=== PATIENT | female | born 1955 | race Caucasian/White ===

== ENCOUNTER → 2016-11-06 | Outpatient (CLI) | payer OTHER ==
--- NOTE | 2016-11-06 15:59 | REP ---
MAXILLOFACIAL CT WITHOUT CONTRAST: HISTORY: Sinus pain. Small bilateral Samm's cells are present. Minimal mucosal thickening is present in the maxillary sinuses. The remaining sinuses are clear. The osteomeatal units are patent. The middle and inferior nasal turbinates are partially paradoxical. There is francis bullosa of the left middle nasal turbinate. There is minimal deviation of the nasal septum to the right. The nasal septum abuts the middle nasal turbinates. The cribriform plate , medial ortiz of the orbits and optic canals are intact. The carotid canals form a segment of the posterolateral ortiz of the sphenoid sinus. IMPRESSION: Sinus mucosal thickening as described above. Signed by Patrick Rojas MD 11/06/2016 04:55 P
== END ==
LOC: M RAD 15:06
PROVIDERS: ATTEND Nurse Practitioner Family
DX: R51 Headache (principal)

== ENCOUNTER → 2017-01-25 | Outpatient (CLI) | payer OTHER ==
--- NOTE | 2017-01-25 13:10 | REP ---
RIGHT UPPER QUADRANT ULTRASOUND: Real-time sonographic evaluation of the right upper quadrant performed. Patient is status post cholecystectomy. There is not significant biliary diltation. Common bile duct measures 7 mm. There is diffuse fibrofatty infiltration of the liver. No gross liver mass is seen. Pancreas could not be visualized due to overlying bowel gas. Right kidney demonstrates no hydronephrosis or nephrolithiasis with normal size at 10.7 cm in length. No free fluid is seen. IMPRESSION: Status post cholecystectomy. Diffuse fibrofatty infiltration of the liver without other definite abnormality. Signed by Nathan Menendez MD 01/25/2017 03:28 P
== END ==
LOC: M RAD 09:10
PROVIDERS: ATTEND Nurse Practitioner Family
DX: K76.0 Fatty (change of) liver, not elsewhere classified (principal)

== ENCOUNTER → 2017-03-06 | Outpatient (CLI) | payer OTHER ==
[2017-03-06 13:12] LABS: BLOOD UREA NITROGEN 8 MG/DL (7-18); CREATININE FOR GFR 0.74 MG/DL (0.55-1.02); GLOMERULAR FILTRATION RATE > 60.0 (>51)
== END ==
LOC: M LAB 12:18
PROVIDERS: ATTEND Internal Medicine Gastroenterology
DX: K90.0 Celiac disease (principal)

== ENCOUNTER → 2017-03-08 | Outpatient (CLI) | payer OTHER ==
[~2017-03-08] MED LIST: GASTROGRAFIN SOLUTION 30ML (Q9963) As Ordered ONE; ISOVUE-370 76% 100ML VIAL (Q9967) As Ordered ONE
--- NOTE | 2017-03-08 12:52 | REP ---
Clinical: Abdominal pain with elevated liver function tests. Technique: Axial contrast enhanced images from the lung bases to the pubic symphysis using oral and 100 ml Isovue 370 intravenous contrast material with precontrast and delayed images of the abdomen as well as coronal and sagittal re-formations. Findings: Lung bases are clear. Visualized heart and pericardium normal. Diffuse fatty infiltration and mild enlargement of the liver is appreciated without focal hepatic lesion. Spleen, pancreas, bilateral adrenal glands and kidneys are normal. The enteric system including stomach, small and large bowel is unremarkable and without obstruction or acute inflammatory process. Sigmoid diverticulosis noted without acute diverticulitis. The patient appears to be status post cholecystectomy and appendectomy. Pelvis demonstrates normal bladder and uterus. 4 cm adnexal cyst was identified on pelvic ultrasound dated 2012. No ascites. No free air. No obvious adenopathy. Atherosclerotic changes to the aorta noted without aneurysm. Musculoskeletal structures demonstrate age-related changes. Impression: 1. Hepatomegaly and mild fatty infiltration to the liver without focal hepatic lesion. 2. 4 cm adnexal cyst identified on prior ultrasound dated 2012. 3. Colonic diverticula without acute diverticulitis. 4. No further acute intra-abdominal or pelvic pathology appreciated. Signed by Juan Miguel Welch MD 03/08/2017 12:43 P
== END ==
LOC: M RAD 09:29
PROVIDERS: ATTEND Internal Medicine Gastroenterology
DX: R94.5 Abnormal results of liver function studies (principal)

== ENCOUNTER → 2017-03-26 | Outpatient (CLI) | payer OTHER ==
[2017-03-26 18:35] LABS: ALBUMIN 3.8 GM/DL (3.2-5.2); ALBUMIN/GLOBULIN RATIO 1.27 (1.00-1.93); ALKALINE PHOSPHATASE 134 U/L (45-117); ALT/SGPT 138 U/L (12-78); AST/SGOT 103 U/L (15-37); BILIRUBIN,DIRECT 0.2 MG/DL (0.0-0.2); BILIRUBIN,TOTAL 0.5 MG/DL (0.2-1.0); FERRITIN 360 NG/ML (8-252); PERCENT SATURATION 15.4 % (13.2-37.4); TOTAL IRON BINDING CAPACITY 358 UG/DL (250-450); TOTAL PROTEIN 6.8 GM/DL (6.4-8.2)
[2017-03-27 09:39] LABS: HEPATITIS B SURFACE ANTIBODY NEGATIVE (POSITIVE)
[2017-03-27 11:40] LABS: ALBUMIN 4.17 GM/DL (3.29-5.55); ALBUMIN % 61.3 % (55.8-66.1); GAMMA GLOBULIN % 9.1 % (11.1-18.8)
[2017-03-29 00:08] LABS: ALPHA 1 ANTITRYPSIN 175 mg/dL (90-200); TISSUE TRANSGLUTAMINASE IgG 2 U/mL (0-5)
== END ==
LOC: M LAB 15:53
PROVIDERS: ATTEND Nurse Practitioner Family
DX: R94.5 Abnormal results of liver function studies (principal)

== ENCOUNTER → 2018-01-10 | Outpatient (REF) | payer OTHER ==
[2018-01-10 15:09] LABS: VITAMIN B12 LEVEL 701 PG/ML (247-911)
[2018-01-10 15:24] LABS: ERYTHROCYTE SEDIMENTATION RATE 26 mm/hr (0-30)
== END ==
LOC: M LAB REF 13:33
DX: M05.40 Rheumatoid myopathy with rheumatoid arthritis of unspecified site (principal)

== ENCOUNTER → 2019-06-08 | Outpatient (REF) | payer OTHER | LOC: M LAB REF 12:15 | PROVIDERS: ATTEND Internal Medicine | DX: M06.9 Rheumatoid arthritis, unspecified (principal) ==

== ENCOUNTER → 2021-03-18 | Outpatient (CLI) | payer MEDICARE, OTHER ==
--- NOTE | 2021-03-18 14:27 | REP ---
INDICATION: SOB COMPARISON: 01/09/2016 TECHNIQUE: PA and lateral. FINDINGS: The mediastinum and cardiac silhouette are normal. The lung wilkerson are clear and without acute consolidation, effusion, or pneumothorax. The skeletal structures are intact and normal. IMPRESSION: No acute cardiopulmonary process. <Electronically signed by Juan Miguel Welch > 03/18/21 0179
== END ==
LOC: M RAD 13:52
PROVIDERS: ATTEND Internal Medicine
DX: R06.02 Shortness of breath (principal)

== ENCOUNTER → 2021-09-05 | Outpatient (REF) | payer MEDICARE, OTHER | LOC: M LAB REF 18:51 | PROVIDERS: ATTEND Physician Assistant | DX: D04.5 Carcinoma in situ of skin of trunk (principal) | CPT/HCPCS: 11102; 17000; 17111; 88305; G0463 ==

== ENCOUNTER → 2021-11-07 | Outpatient (REF) | payer MEDICARE, OTHER | LOC: M LAB REF 16:57 | PROVIDERS: ATTEND Physician Assistant | DX: L90.5 Scar conditions and fibrosis of skin (principal); L57.8 Other skin changes due to chronic exposure to nonionizing radiation ==

== ENCOUNTER → 2021-11-21 | Outpatient (REF) | payer MEDICARE, OTHER ==
[2021-11-21 17:26] LABS: PERCENT SATURATION 14.8 % (13.2-45.0)
== END ==
LOC: M LAB REF 16:22
PROVIDERS: ATTEND Internal Medicine
DX: D64.9 Anemia, unspecified (principal); M05.40 Rheumatoid myopathy with rheumatoid arthritis of unspecified site

== ENCOUNTER → 2022-04-03 | Outpatient (CLI) | payer MEDICARE, OTHER ==
[~2022-04-03] MED LIST changes: -GASTROGRAFIN SOLUTION 30ML (Q9963) As Ordered ONE; -ISOVUE-370 76% 100ML VIAL (Q9967) As Ordered ONE; +ISOVUE-370 76% 100ML VIAL As Ordered ONE
== END ==
LOC: M RAD 09:06
PROVIDERS: ATTEND Internal Medicine
DX: R91.8 Other nonspecific abnormal finding of lung field (principal); R06.02 Shortness of breath
CPT/HCPCS: 71260; Q9967

== ENCOUNTER → 2022-04-24 | Outpatient (CLI) | payer MEDICARE, OTHER | LOC: M WUC 14:30 | PROVIDERS: ATTEND Physician Assistant Medical | DX: M54.2 Cervicalgia (principal); M25.512 Pain in left shoulder ==

== ENCOUNTER → 2022-04-26 | Outpatient (CLI) | payer MEDICARE, OTHER | LOC: M PLARAD 10:14 | PROVIDERS: ATTEND Internal Medicine | DX: R91.8 Other nonspecific abnormal finding of lung field (principal) | CPT/HCPCS: 78815; A9552 ==

== ENCOUNTER → 2022-09-05 | Outpatient (CLI) | payer MEDICARE, OTHER ==
[2022-09-05 15:27] LABS: BASO # 0.1 10^3/uL (0.0-0.2); BASO % 0.6 % (0.0-1.0); EOS # 0.2 10^3/uL (0.0-0.5); EOS % 1.6 % (0.0-3.0); HEMATOCRIT 38.3 % (36.0-47.0); HEMOGLOBIN 11.8 g/dl (12.0-15.5); LYMPH # 2.1 10^3/uL (1.5-5.0); LYMPH % 22.2 % (24.0-44.0); MEAN CORPUSCULAR HEMOGLOBIN 27.7 pg (27.0-33.0); MEAN CORPUSCULAR HGB CONC 30.8 g/dl (32.0-36.5); MEAN CORPUSCULAR VOLUME 89.9 fl (80.0-96.0); MONO # 0.9 10^3/uL (0.0-0.8); MONO % 9.3 % (2.0-8.0); NEUTROPHILS # 6.2 10^3/uL (1.5-8.5); NEUTROPHILS % 65.5 % (36.0-66.0); PLATELET COUNT, AUTOMATED 162 10^3/uL (150-450); RED BLOOD COUNT 4.26 10^6/uL (4.00-5.40); WHITE BLOOD COUNT 9.4 10^3/uL (4.0-10.0)
[2022-09-05 18:04] LABS: BLOOD UREA NITROGEN 16 MG/DL (9-23); CALCIUM LEVEL 9.4 MG/DL (8.3-10.6); CARBON DIOXIDE LEVEL 26 MMOL/L (20-31); CHLORIDE LEVEL 102 MMOL/L (98-107); CREATININE FOR GFR 0.58 MG/DL (0.55-1.30); GLOMERULAR FILTRATION RATE > 60.0 (>45); GLUCOSE, FASTING 161 MG/DL (74-106); POTASSIUM SERUM 4.6 MMOL/L (3.5-5.1); SODIUM LEVEL 138 MMOL/L (136-145)
== END ==
LOC: M PLALAB 13:59
PROVIDERS: ATTEND Internal Medicine Cardiovascular Disease
DX: E11.69 Type 2 diabetes mellitus with other specified complication (principal); I10 Essential (primary) hypertension

== ENCOUNTER → 2022-10-01 | Outpatient (REF) | payer MEDICARE, OTHER ==
[2022-10-02 13:27] LABS: FERRITIN 30.8 NG/ML (7.3-270.7)
[2022-10-02 14:03] LABS: PERCENT SATURATION 15.2 % (13.2-45.0)
== END ==
LOC: M LAB REF 11:41
PROVIDERS: ATTEND Internal Medicine
DX: D64.9 Anemia, unspecified (principal); R53.83 Other fatigue

== ENCOUNTER → 2022-10-12 | Outpatient (CLI) | payer MEDICARE, OTHER ==
[2022-10-12 15:50] LABS: HEMATOCRIT 34.9 % (36.0-47.0); HEMOGLOBIN 10.8 g/dl (12.0-15.5); MEAN CORPUSCULAR HEMOGLOBIN 27.8 pg (27.0-33.0); MEAN CORPUSCULAR HGB CONC 30.9 g/dl (32.0-36.5); MEAN CORPUSCULAR VOLUME 89.9 fl (80.0-96.0); PLATELET COUNT, AUTOMATED 207 10^3/uL (150-450); RED BLOOD COUNT 3.88 10^6/uL (4.00-5.40); WHITE BLOOD COUNT 5.6 10^3/uL (4.0-10.0)
[2022-10-12 16:21] LABS: ALBUMIN 3.6 G/DL (3.2-5.2); ALKALINE PHOSPHATASE 144 U/L (46-116); ALT/SGPT 38 U/L (7.0-40); AST/SGOT 61 U/L (<34); BILIRUBIN,TOTAL 0.7 MG/DL (0.3-1.2); BLOOD UREA NITROGEN 9 MG/DL (9-23); CALCIUM LEVEL 9.7 MG/DL (8.3-10.6); CARBON DIOXIDE LEVEL 21 MMOL/L (20-31); CHLORIDE LEVEL 105 MMOL/L (98-107); CREATININE FOR GFR 0.59 MG/DL (0.55-1.30); GLOMERULAR FILTRATION RATE > 60.0 (>45); GLUCOSE, FASTING 160 MG/DL (74-106); POTASSIUM SERUM 4.6 MMOL/L (3.5-5.1); SODIUM LEVEL 139 MMOL/L (136-145); TOTAL PROTEIN 6.2 G/DL (5.7-8.2)
== END ==
LOC: M PLALAB 13:19
PROVIDERS: ATTEND Physician Assistant
DX: I25.10 Atherosclerotic heart disease of native coronary artery without angina pectoris (principal); G47.30 Sleep apnea, unspecified

== ENCOUNTER → 2022-11-09 | Outpatient (CLI) | payer MEDICARE, OTHER ==
[2022-11-09 14:29] LABS: CHOLESTEROL RISK RATIO 3.36 (<5); HDL CHOLESTEROL 31.5 MG/DL (>40); LDL CHOLESTEROL 51.1 MG/DL (<100)
[2022-11-09 14:30] LABS: FERRITIN 23.7 NG/ML (7.3-270.7)
[2022-11-09 14:37] LABS: HEMATOCRIT 34.9 % (36.0-47.0); HEMOGLOBIN 10.6 g/dl (12.0-15.5); MEAN CORPUSCULAR HEMOGLOBIN 27.9 pg (27.0-33.0); MEAN CORPUSCULAR HGB CONC 30.4 g/dl (32.0-36.5); MEAN CORPUSCULAR VOLUME 91.8 fl (80.0-96.0); PLATELET COUNT, AUTOMATED 178 10^3/uL (150-450); WHITE BLOOD COUNT 4.8 10^3/uL (4.0-10.0)
== END ==
LOC: M PLALAB 10:36
PROVIDERS: ATTEND Physician Assistant
DX: D64.9 Anemia, unspecified (principal); E78.5 Hyperlipidemia, unspecified

== ENCOUNTER → 2022-11-09 | Outpatient (CLI) | payer MEDICARE, OTHER | LOC: M RAD 09:32 | PROVIDERS: ATTEND Internal Medicine Pulmonary Disease | DX: R91.1 Solitary pulmonary nodule (principal); E78.5 Hyperlipidemia, unspecified; D64.9 Anemia, unspecified ==

== ENCOUNTER → 2022-11-16 | Outpatient (REF) | payer MEDICARE, OTHER ==
[2022-11-16 16:50] LABS: INR 1.04; PROTHROMBIN TIME 13.8 SECONDS (12.5-14.5)
== END ==
LOC: M LAB REF 16:04
PROVIDERS: ATTEND Internal Medicine
DX: D64.9 Anemia, unspecified (principal); K76.0 Fatty (change of) liver, not elsewhere classified

== ENCOUNTER → 2023-02-07 | Outpatient (REF) | payer MEDICARE, OTHER ==
[2023-02-07 17:30] LABS: PERCENT SATURATION 8.8 % (13.2-45.0)
== END ==
LOC: M LAB REF 16:17
PROVIDERS: ATTEND Internal Medicine
DX: D50.9 Iron deficiency anemia, unspecified (principal)

== ENCOUNTER 2023-11-15 17:22 | Emergency (ER) | payer MEDICARE, OTHER ==
[~2023-11-15] VITALS: Ht 177.8 cm; Wt 130.9 kg
[2023-11-15] MEDS ORDERED: ESCITALOPRAM (18:31)
[2023-11-15] MEDS ORDERED: CLOP75TA2 (18:31)
[2023-11-15] MEDS ORDERED: TIRO50CA3 (18:31)
[2023-11-15] MEDS ORDERED: PRAM0.5T4 (18:31)
[2023-11-15] MEDS ORDERED: VALS1TAB68 (18:31)
[2023-11-15] MEDS ORDERED: METF500T13 (18:31)
[2023-11-15] MEDS ORDERED: ONDA4TAB6 (18:31)
[2023-11-15] MEDS ORDERED: CYCL-707 (18:31)
[2023-11-15] MEDS ORDERED: ALLO100T (18:31)
[2023-11-15] MEDS ORDERED: BUPR75TA5 (18:31)
[2023-11-15] MEDS ORDERED: NS 1,000 ML IV ONE (19:20)
[2023-11-15 20:15] LABS: BASO # 0.1 10^3/uL (0.0-0.2); BASO % 0.8 % (0.0-1.0); EOS # 0.1 10^3/uL (0.0-0.5); EOS % 1.8 % (0.0-3.0); HEMOGLOBIN 10.5 g/dl (12.0-15.5); LYMPH # 1.6 10^3/uL (1.5-5.0); LYMPH % 26.2 % (24.0-44.0); MEAN CORPUSCULAR HGB CONC 31.8 g/dl (32.0-36.5); MEAN CORPUSCULAR VOLUME 84.8 fl (80.0-96.0); MONO # 0.5 10^3/uL (0.0-0.8); MONO % 8.5 % (2.0-8.0); NEUTROPHILS # 3.8 10^3/uL (1.5-8.5); NEUTROPHILS % 62.4 % (36.0-66.0); PLATELET COUNT, AUTOMATED 232 10^3/uL (150-450); RED BLOOD COUNT 3.89 10^6/uL (4.00-5.40); WHITE BLOOD COUNT 6.1 10^3/uL (4.0-10.0)
[2023-11-15 20:39] LABS: CK-MB VALUE MASS < 1.0 NG/ML (<3.6)
[2023-11-15 20:41] LABS: BLOOD UREA NITROGEN 8 MG/DL (9-23); CALCIUM LEVEL 9.6 MG/DL (8.3-10.6); CARBON DIOXIDE LEVEL 25 MMOL/L (20-31); CHLORIDE LEVEL 108 MMOL/L (98-107); CPK CREATINE PHOSPHOKINASE 72 U/L (34-145); CREATININE FOR GFR 0.75 MG/DL (0.55-1.30); GLOMERULAR FILTRATION RATE > 60.0 (>45); GLUCOSE, FASTING 141 MG/DL (74-106); MB/CK RELATIVE INDEX 1.38 (< OR =4); POTASSIUM SERUM 4.1 MMOL/L (3.5-5.1); SODIUM LEVEL 140 MMOL/L (136-145)
[2023-11-15 20:43] LABS: THYROID STIMULATING HORMONE 2.093 uIU/ML (0.55-4.78)
[2023-11-15 21:50] LABS: CK-MB VALUE MASS < 1.0 NG/ML (<3.6); CPK CREATINE PHOSPHOKINASE 75 U/L (34-145); MB/CK RELATIVE INDEX 1.33 (< OR =4)
[2023-11-16 00:45] VITALS: BP 144/67; TEMP 98.1; O2SAT 95
== END 2023-11-16 01:06 | disposition home or self-care (01) ==
LOC: M ED 17:22
DX: I95.1 Orthostatic hypotension (principal); J45.909 Unspecified asthma, uncomplicated; K58.9 Irritable bowel syndrome, unspecified; G47.33 Obstructive sleep apnea (adult) (pediatric); Z88.5 Allergy status to narcotic agent; Z79.83 Long term (current) use of bisphosphonates; Z79.899 Other long term (current) drug therapy

== ENCOUNTER → 2023-11-22 | Outpatient (CLI) | payer MEDICARE, OTHER ==
[~2023-11-22] MED LIST changes: +ALLO100T; +BUPR75TA5; +CLOP75TA2; +CYCL-707; +ESCITALOPRAM; -ISOVUE-370 76% 100ML VIAL As Ordered ONE; +METF500T13; +ONDA4TAB6; +PRAM0.5T4; +TIRO50CA3; +VALS1TAB68
== END ==
LOC: M PLAIMG 08:06
PROVIDERS: ATTEND Internal Medicine Pulmonary Disease
DX: R91.8 Other nonspecific abnormal finding of lung field (principal)

== ENCOUNTER → 2023-11-29 | Outpatient (REF) | payer MEDICARE, OTHER ==
[2023-11-29 12:58] LABS: PERCENT SATURATION 9.1 % (13.2-45.0)
[2023-11-29 13:05] LABS: FERRITIN 13.4 NG/ML (7.3-270.7)
== END ==
LOC: M LAB REF 12:09
PROVIDERS: ATTEND Internal Medicine
DX: D50.9 Iron deficiency anemia, unspecified (principal)

== ENCOUNTER → 2024-04-06 | Outpatient (CLI) | payer MEDICARE, OTHER ==
[~2024-04-06] MED LIST changes: +ONDA-282; -ONDA4TAB6
== END ==
LOC: M RAD 07:46
PROVIDERS: ATTEND Internal Medicine
DX: R16.0 Hepatomegaly, not elsewhere classified (principal); Z90.49 Acquired absence of other specified parts of digestive tract

== ENCOUNTER → 2024-11-12 | Outpatient (REF) | payer MEDICARE, OTHER ==
[2024-11-12 18:45] LABS: PERCENT SATURATION 5.4 % (13.2-45.0)
== END ==
LOC: M LAB REF 16:22
PROVIDERS: ATTEND Internal Medicine
DX: D50.9 Iron deficiency anemia, unspecified (principal)

== ENCOUNTER → 2025-02-11 | Outpatient (REF) | payer MEDICARE, OTHER ==
[2025-02-11 19:17] LABS: PERCENT SATURATION 16.9 % (13.2-45.0)
[2025-02-11 19:19] LABS: FERRITIN 331.1 NG/ML (7.3-270.7)
== END ==
LOC: M LAB REF 17:32
PROVIDERS: ATTEND Internal Medicine
DX: D50.9 Iron deficiency anemia, unspecified (principal)

== ENCOUNTER → 2025-05-25 | Outpatient (REF) | payer MEDICARE, OTHER | LOC: M LAB REF 14:54 | PROVIDERS: ATTEND Internal Medicine | DX: R63.5 Abnormal weight gain (principal); R10.9 Unspecified abdominal pain; E11.65 Type 2 diabetes mellitus with hyperglycemia ==

== ENCOUNTER → 2025-08-16 | Outpatient (REF) | payer MEDICARE, OTHER ==
[~2025-08-16] MED LIST changes: +BUPR-363; -BUPR75TA5
[2025-08-19 23:27] LABS: ADRENOCORTICOTROPHIC HORMONE 24 pg/mL (6-50)
== END ==
LOC: M LAB REF 12:45
PROVIDERS: ATTEND Internal Medicine
DX: E11.65 Type 2 diabetes mellitus with hyperglycemia (principal); E66.813 Obesity, class 3; R94.7 Abnormal results of other endocrine function studies; R79.89 Other specified abnormal findings of blood chemistry; Z79.899 Other long term (current) drug therapy; K74.60 Unspecified cirrhosis of liver

== ENCOUNTER → 2025-10-11 | Outpatient (REF) | payer MEDICARE, OTHER ==
[2025-10-11 18:56] LABS: IRON (FE) 85.0 UG/DL (50-170); PERCENT SATURATION 28.1 % (13.2-45.0)
== END ==
LOC: M LAB REF 17:37
PROVIDERS: ATTEND Internal Medicine
DX: D50.9 Iron deficiency anemia, unspecified (principal)